=== PATIENT | male | born 1945 | race Caucasian/White ===

== ENCOUNTER → 2018-07-31 | Outpatient (CLI) | payer MEDICARE ==
--- NOTE | 2018-08-02 19:50 | PE ---
EXAMINATION TYPE: PET CT fusion skull to thigh DATE OF EXAM: 07/31/2018 CLINICAL HISTORY: 73-year-old male solitary pulmonary nodule. TECHNIQUE: Following the intravenous administration of 13.9 mCi of F-18 FDG, whole body images are performed from the skull base to the midthigh. Images are reviewed on the computer in the coronal, a xial, and sagittal planes. Reconstructed rotating images are created on independent workstation and reviewed on the computer. A localization and attenuation correction CT is performed in conjunction with the PET scan. Glucose level: 113 mg/dL CTDI: 5.27 mGy DLP: 530.98 mGy-cm COMPARISON: None. FINDINGS: PET: Symmetrical pharyngeal uptake likely physiologic. There is motion artifact obscuring this region on C T. Mild focal uptake along the anterior right glenohumeral joint capsule likely on a degenerative basis, max SUV 2.7. Left AP window, prevascular space, and left hilar lymph nodes measure up to 2.2 x 1.4 cm and show mil d uptake, maximum SUV 2.2. On CT, soft tissue densities blending together at the left hilum and are n ot well assessed. Mild uptake associated with mild bilateral gynecomastia. Medial left upper lobe pulmonary nodule measures 1.9 cm but has no discrete FDG uptake, max SUV 1.6. Average liver SUV 2.1. Prominent but not enlarged 1.3 cm portacaval lymph node is mild uptake, max SUV 2.3. Variable mild to intense bowel uptake especially in the region of the hepatic flexure of the colon li jf physiologic muscular uptake. 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 Increased uptake along the left gluteal insertion compatible with insertional tendinopathy. ATTENUATION CORRECTION CT: Visualized paranasal sinuses are clear. No cervical lymphadenopathy seen. Heart is mildly enlarged without pericardial effusion. Coronary vessel calcifications are present. E ctatic upper descending thoracic aorta 3.1 cm. Conventional arch vessel branching anatomy. Large elizabeth iber to the main right and the pulmonary arteries to 2.5 and 2.7 cm, respectively, suggesting underly ing pulmonary arterial hypertension. Mild diffuse emphysematous change. No consolidation or pleural effusion. Small fatty umbilical hernia. No dilated small bowel, free fluid, or free air. No mesenteric or retro peritoneal lymphadenopathy. Mild overall stool burden. Lower descending and sigmoid colonic diverticu losis. No pericolic inflammatory change. Bladder nondistended. Visualization of the pelvis is limited due to artifact from the patient's left hip replacement. Bones: Degenerative changes at the right hip, SI joints, and throughout the visualized spine. IMPRESSION: 1. Medial left upper lobe solitary pulmonary nodule measuring 1.9 cm has no discrete FDG uptake. Whil e this makes the nodule less suspicious, low-grade neoplasm and carcinoid tumors can have false negat malachi findings on PET/CT. Appropriate CT follow up recommended to ensure stability. 2. Very mild uptake (Max SUV 2.2) involving enlarged prevascular space/AP window/left hilar lymph nod es measuring up to 2.2 cm. This should also be reassessed at CT follow-up. Follow-up should be perfor med utilizing IV contrast to help distinguish left hilar structures. 3. Segments of intense uptake within the colon especially at the hepatic flexure likely physiologic m uscular uptake. Correlate with routine screening colonoscopy. 4. Incidental nonmetabolic fatty tumor measuring 8 cm within the medial upper left thigh. Given patie nt's age, size, and deep location, recommend follow-up in 6-12 months as intramuscular lipoma, atypic al lipomatous tumor, and low-grade liposarcoma are in the differential. Benign etiology is favored at this time. 5. COPD with mild emphysema, pulmonary arterial hypertension, small fatty umbilical hernia, and left- sided colonic diverticulosis.
== END | disposition home or self-care (01) ==
LOC: RADPETMAIN 08:38
PROVIDERS: ATTEND Internal Medicine Critical Care Medicine
DX: R91.1 Solitary pulmonary nodule (principal); J43.9 Emphysema, unspecified; I27.21 Secondary pulmonary arterial hypertension; K42.9 Umbilical hernia without obstruction or gangrene; K57.30 Diverticulosis of large intestine without perforation or abscess without bleeding
CPT/HCPCS: 78815; A9552

== ENCOUNTER → 2020-12-04 | Outpatient (CLI) | payer MEDICARE ==
--- NOTE | 2020-12-04 10:17 | XR ---
EXAMINATION TYPE: XR chest 2V DATE OF EXAM: 12/04/2020 COMPARISON: 10/24/2020 HISTORY: 75-year-old male R06.02, shortness of breath, dyspnea TECHNIQUE: Frontal and lateral views FINDINGS: Median sternotomy wires with postsurgical clips in the mediastinum. Heart remains mildly enlarged. Mi ld hyperinflation. No nalini consolidation or pleural effusion. Improvement in aeration at the left ba se compared to prior exam. Moderate anterior and plate spondylosis midthoracic spine. IMPRESSION: Mild cardiomegaly and COPD. No acute process seen.
== END | disposition home or self-care (01) ==
LOC: RADXRMAIN 09:47
PROVIDERS: ATTEND Internal Medicine Interventional Cardiology
DX: J44.9 Chronic obstructive pulmonary disease, unspecified (principal); I51.7 Cardiomegaly
CPT/HCPCS: 71046